=== PATIENT | female | born 1945 | race Caucasian/White ===

== ENCOUNTER → 2018-02-06 | Outpatient (CLI) | payer MEDICARE ==
[~2018-02-06] MED LIST: ASPI-496 PO; ATOR10TA PO; LOVA10TA PO; PANT20TA2 PO; PROTONIC; WARF2.5T73 PO
== END | disposition home or self-care (01) ==
LOC: CFH 13:46
PROVIDERS: ATTEND Family Medicine
DX: N63.10 Unspecified lump in the right breast, unspecified quadrant (principal); N63.20 Unspecified lump in the left breast, unspecified quadrant; N64.52 Nipple discharge; R92.1 Mammographic calcification found on diagnostic imaging of breast
CPT/HCPCS: 77066

== ENCOUNTER → 2018-03-04 | Outpatient (CLI) | payer MEDICARE ==
[~2018-03-04] MED LIST changes: +LIDOCAINE 1%, 20ML ONE; +SODIUM BICARBONATE 4.2%, 5ML ONE
== END | disposition home or self-care (01) ==
LOC: CFH 09:01
PROVIDERS: ATTEND Family Medicine
DX: D24.2 Benign neoplasm of left breast (principal); M81.0 Age-related osteoporosis without current pathological fracture; N61.0 Mastitis without abscess; N60.82 Other benign mammary dysplasias of left breast
CPT/HCPCS: 19081; 77066; 77080; 88305; J3490

== ENCOUNTER → 2018-04-16 | Outpatient (CLI) | payer MEDICARE ==
[~2018-04-16] MED LIST changes: -LIDOCAINE 1%, 20ML ONE; -SODIUM BICARBONATE 4.2%, 5ML ONE
== END | disposition home or self-care (01) ==
LOC: CFH 15:16
PROVIDERS: ATTEND Family Medicine
DX: Z12.2 Encounter for screening for malignant neoplasm of respiratory organs (principal); J84.10 Pulmonary fibrosis, unspecified; J84.9 Interstitial pulmonary disease, unspecified; Z87.891 Personal history of nicotine dependence; I25.10 Atherosclerotic heart disease of native coronary artery without angina pectoris
CPT/HCPCS: G0297

== ENCOUNTER → 2018-05-29 | Outpatient (CLI) | payer MEDICARE ==
[~2018-05-29] MED LIST changes: +REGADENOSON 0.4 MG/5 ML SYRINGE ONE
== END | disposition home or self-care (01) ==
LOC: CFH 11:01
PROVIDERS: ATTEND Internal Medicine Cardiovascular Disease
DX: I35.8 Other nonrheumatic aortic valve disorders (principal); I10 Essential (primary) hypertension; E11.9 Type 2 diabetes mellitus without complications; R06.02 Shortness of breath; Z86.718 Personal history of other venous thrombosis and embolism
CPT/HCPCS: 78452; 93017; 93306; A9502; J2785

== ENCOUNTER 2020-05-04 17:44 | Emergency (ER) | payer MEDICARE ==
[~2020-05-04] VITALS: Ht 161.3 cm; Wt 73.9 kg
[~2020-05-04 17:44] MED LIST changes: -REGADENOSON 0.4 MG/5 ML SYRINGE ONE; +WARF2.5T32 PO; -WARF2.5T73 PO
[2020-05-04] MEDS ORDERED: SODIUM CHLORIDE 0.9% 1,000ML IVBOLUS ONE (18:30)
[2020-05-04] MEDS ORDERED: SODIUM CHLORIDE FLUSH 10ML SYR IVF ONE (18:30)
--- NOTE | 2020-05-04 18:47 | NUR ---
Brianna wisdom in [facility] - 05/04/20 at 1857 by DAYO BEDSIDE REPORT RECEIVED FROM [facility], PT CARE TO BE TRANSFERRED AT THIS TIME.
[2020-05-04 18:49] LABS: BASOPHILS # (AUTO) 0.08 x10^3/uL (0-0.1); BASOPHILS % (AUTO) 1 % (0-1); EOSINOPHILS # (AUTO) 0.09 x10^3/uL (0-0.4); EOSINOPHILS % (AUTO) 1 % (1-7); LYMPHOCYTES # (AUTO) 2.52 x10^3/uL (1-3.4); LYMPHOCYTES % (AUTO) 15 % (22-44); MD NO; MEAN CORPUSCULAR HEMOGLOBIN 28.3 pg (27.0-34.8); MEAN CORPUSCULAR HGB CONC 33.2 g/dL (32.4-35.8); MEAN CORPUSCULAR VOLUME 85.1 fL (80-100); MEAN PLATELET VOLUME 7.4 fL (7.4-10.4); MONOCYTES # (AUTO) 0.87 x10^3/uL (0.2-0.8); MONOCYTES % (AUTO) 5 % (2-9); NEUTROPHILS # (AUTO) 13.35 x10^3/uL (1.8-6.8); NEUTROPHILS % (AUTO) 79 % (42-75); PLATELET COUNT 488 x10^3/uL (130-400); RED BLOOD COUNT 4.44 x10^6/uL (3.82-5.3); RED CELL DISTRIBUTION WIDTH 13.6 % (9.6-15.2)
[2020-05-04 18:56] LABS: ALANINE AMINOTRANSFERASE 12 U/L (12-78); ALBUMIN 2.9 g/dL (3.4-5.0); ANION GAP 8 mmol/L (5-15); CALCIUM 9.1 mg/dL (8.5-10.1); CHLORIDE 109 mmol/L (98-107); CREATININE 0.86 mg/dL (0.55-1.02)
--- NOTE | 2020-05-04 18:57 | NUR ---
STAFF BOARD REASSIGNED, PT CARE TRANSFERRED BACK TO [facility] AT THIS TIME.
[2020-05-04 18:58] LABS: ALKALINE PHOSPHATASE 96 U/L (45-117); BILIRUBIN,TOTAL 0.5 mg/dL (0.2-1.0); TOTAL PROTEIN 7.4 g/dL (6.4-8.2)
[2020-05-04] MEDS ORDERED: TRAZ-175 PO (19:00)
[2020-05-04] MEDS ORDERED: CHOL10003 PO (19:00)
[2020-05-04] MEDS ORDERED: METH500T7 PO (19:00)
[2020-05-04] MEDS ORDERED: DULA1.5P SC (19:00)
[2020-05-04] MEDS ORDERED: METF500T27 PO (19:00)
[2020-05-04] MEDS ORDERED: METO25TA91 PO (19:00)
[2020-05-04] MEDS ORDERED: OMEP-110 PO (19:00)
[2020-05-04] MEDS ORDERED: ASCO10004 PO (19:00)
--- NOTE | 2020-05-04 19:02 | NUR ---
ERP WAS IN TO SEE PT.
[2020-05-04] MEDS ORDERED: METHOCARBAMOL 500 MG TABLET PO ONE (19:30)
[2020-05-04] MEDS ORDERED: METHOCARBAMOL 500 MG TABLET ONE (20:20)
--- NOTE | 2020-05-04 20:30 | NUR ---
PT MEDICATED WITH ROBAXIN FOR BACK PAIN. AWAITING CT.
--- NOTE | 2020-05-04 21:39 | NUR ---
Brianna wisdom in [facility] - 05/04/20 at [address] PT [address] VIA JAYDE.
--- NOTE | 2020-05-04 21:46 | NUR ---
PT AMBULATED TO BR WITHOUT DIFFICULTY. UPSET THAT CT HASN'T BEEN DONE YET. STATES, "I'M LEAVING AT 10PM. I'M DONE."
--- NOTE | 2020-05-04 21:50 | NUR ---
ERP NOTIFIED THAT PT WANTS TO LEAVE, WILL SPEAK WITH PT.
[2020-05-04 21:56] VITALS: BP 129/73
--- NOTE | 2020-05-04 22:00 | NUR ---
ERP WAS IN ROOM TO SPEAK WITH PT, BUT PT REFUSED TO STAY. PT PULLED OUT HER OWN IV AND AMBULATED OUT OF ED WITHOUT DIFFICULTY.
== END 2020-05-04 22:14 | disposition left against medical advice (07) ==
LOC: ED 19:09
DX: L02.211 Cutaneous abscess of abdominal wall (principal); R19.7 Diarrhea, unspecified; R11.0 Nausea; R07.89 Other chest pain; I10 Essential (primary) hypertension; E11.9 Type 2 diabetes mellitus without complications; Z87.891 Personal history of nicotine dependence
CPT/HCPCS: 36415; 71045; 80053; 83690; 85025; 93005; 96360; 96361; 99285; J7030

== ENCOUNTER → 2020-05-09 | Outpatient (CLI) | payer MEDICARE ==
[~2020-05-09] MED LIST changes: +ASCO100018 PO; +CHOL10003 PO; +DULA1.5P SC; +METF500T27 PO; +METH500T7 PO; +METO25TA91 PO; +OMEP-110 PO; +OMNIPAQUE 350 MG/ML, 100ML BOTTLE ONE; +TRAZ-175 PO
== END | disposition home or self-care (01) ==
LOC: RAD 13:16
PROVIDERS: ATTEND Internal Medicine Gastroenterology
DX: R91.1 Solitary pulmonary nodule (principal); N28.1 Cyst of kidney, acquired; J84.10 Pulmonary fibrosis, unspecified; R23.4 Changes in skin texture; M51.36 Other intervertebral disc degeneration, lumbar region
CPT/HCPCS: 74177; Q9967

== ENCOUNTER → 2020-06-01 | Outpatient (CLI) | payer MEDICARE ==
[~2020-06-01] MED LIST changes: +DAPT500V3 IV; +LINE600T15 PO; +MICO14CR TP; -OMNIPAQUE 350 MG/ML, 100ML BOTTLE ONE; +VANC1VIA3 PO
== END | disposition home or self-care (01) ==
LOC: RAD 08:05
PROVIDERS: ATTEND Surgery
DX: L02.211 Cutaneous abscess of abdominal wall (principal)
CPT/HCPCS: 76080

== ENCOUNTER → 2020-06-15 | Outpatient (CLI) | payer MEDICARE ==
[~2020-06-15] MED LIST changes: +OMNIPAQUE 350 MG/ML, 100ML BOTTLE ONE
== END | disposition home or self-care (01) ==
LOC: CFH 11:46
PROVIDERS: ATTEND Internal Medicine Infectious Disease
DX: K65.1 Peritoneal abscess (principal); M51.36 Other intervertebral disc degeneration, lumbar region; M41.86 Other forms of scoliosis, lumbar region
CPT/HCPCS: 74177; 82565; Q9967

== ENCOUNTER 2021-02-16 06:37 | Day surgery (SDC) | payer MEDICARE ==
[~2021-02-16] VITALS: Ht 160 cm; Wt 76.0 kg
[~2021-02-16 06:37] MED LIST changes: +METH-639 PO; -METH500T7 PO; -MICO14CR TP; +MICO14CR3 TP; -OMNIPAQUE 350 MG/ML, 100ML BOTTLE ONE; -VANC1VIA3 PO; +VANC1VIA36 PO
[2021-02-16] MEDS ORDERED: calcium PO (07:14)
[2021-02-16] MEDS ORDERED: DULO30CA2 PO (07:14)
[2021-02-16] MEDS ORDERED: VITA1TAB19 PO (07:14)
[2021-02-16] MEDS ORDERED: multivitamin PO (07:14)
[2021-02-16] MEDS ORDERED: CHLORHEXIDINE 15 ML UDC ONE (07:29)
[2021-02-16] MEDS ORDERED: ONDANSETRON 2MG/ML, 2ML ONE (07:47)
[2021-02-16 07:50] VITALS: BP 141/82
[2021-02-16] MEDS ORDERED: OXYcodone 5 MG/5 ML ORAL.SOL UDC PO PRN (08:00)
[2021-02-16] MEDS ORDERED: ACETAMINOPHEN 325 MG TABLET PO PRN (08:00)
[2021-02-16] MEDS ORDERED: ONDANSETRON 2MG/ML, 2ML IVPush ONE (08:00)
[2021-02-16] MEDS ORDERED: FENTANYL PF 100 MCG/2ML IV PRN (08:00)
[2021-02-16] MEDS ORDERED: LABETALOL 5MG/ML, 20ML IV PRN (08:00)
[2021-02-16] MEDS ORDERED: PROMETHAZINE 25 MG/ML, 1ML IVPush PRN (08:00)
[2021-02-16] MEDS ORDERED: hydrALAzine 20 MG/ML, 1ML IV PRN (08:00)
[2021-02-16] MEDS ORDERED: LACTATED RINGERS 1,000 ML IV SCH (08:00)
[2021-02-16] MEDS ORDERED: EPHEDRINE 50 MG/ML, 1ML IVPush PRN (08:00)
[2021-02-16] MEDS ORDERED: METOPROLOL 1 MG/ML, 5ML IV PRN (08:00)
[2021-02-16] MEDS ORDERED: CHLORHEXIDINE 15 ML UDC PO ONE (08:00)
[2021-02-16] MEDS ORDERED: ONDANSETRON 2MG/ML, 2ML IVPush PRN (08:00)
[2021-02-16] MEDS ORDERED: HALOPERIDOL 5 MG/ML IV PRN (08:00)
[2021-02-16] MEDS ORDERED: EPHEDRINE 50 MG/ML, 1ML IM PRN (08:00)
[2021-02-16] MEDS ORDERED: PHENYLEPHRINE 10 MG/ML ONE (08:30)
[2021-02-16] MEDS ORDERED: PROPOFOL 10 MG/ML, 20ML ONE (08:30)
[2021-02-16] MEDS ORDERED: PROPOFOL 10 MG/ML, 50ML ONE (08:30)
[2021-02-16] MEDS ORDERED: ALBUTEROL SULFATE 200 PUFFS/8.5 GR INH ONE (08:30)
[2021-02-16] MEDS ORDERED: DEXAMETHASONE 4 MG/ML, 1ML ONE (08:30)
[2021-02-16] MEDS ORDERED: FENTANYL PF 100 MCG/2ML ONE (08:33)
[2021-02-16 08:46] LABS: ALBUMIN 3.7 g/dL (3.4-5.0); ANION GAP 12 mmol/L (5-15); CALCIUM 9.2 mg/dL (8.5-10.1); CHLORIDE 106 mmol/L (98-107)
[2021-02-16 08:50] LABS: ALANINE AMINOTRANSFERASE 20 U/L (12-78); ALKALINE PHOSPHATASE 85 U/L (45-117); BILIRUBIN,TOTAL 0.5 mg/dL (0.2-1.0); CREATININE 0.91 mg/dL (0.55-1.02); TOTAL PROTEIN 7.7 g/dL (6.4-8.2)
== END 2021-02-16 11:00 | disposition home or self-care (01) ==
LOC: OUT 06:37
PROVIDERS: ATTEND Internal Medicine Gastroenterology
DX: R12 Heartburn (principal); K43.5 Parastomal hernia without obstruction or gangrene; K52.9 Noninfective gastroenteritis and colitis, unspecified; K29.60 Other gastritis without bleeding; K44.9 Diaphragmatic hernia without obstruction or gangrene; K57.10 Diverticulosis of small intestine without perforation or abscess without bleeding; I10 Essential (primary) hypertension; E11.9 Type 2 diabetes mellitus without complications; E78.5 Hyperlipidemia, unspecified; Z20.822 Contact with and (suspected) exposure to COVID-19; Z79.899 Other long term (current) drug therapy; Z90.49 Acquired absence of other specified parts of digestive tract
CPT/HCPCS: 43239; 44389; 45330; 80053; 82962; 87635; 88305; 88342; 93005; J1100; J2370; J2405; J2704; J3010; J7120